=== PATIENT | male | born 1955 | race Caucasian/White ===

== ENCOUNTER 2016-09-01 06:11 | Day surgery (SDC) | payer OTHER ==
[2016-08-31 14:04] VITALS: BMI 24.0
[2016-09-01 07:04] LABS: URINE APPEARANCE CLEAR; URINE BILIRUBIN NEGATIVE (NEGATIVE); URINE BLOOD NEGATIVE (NEGATIVE); URINE COLOR LTYELLOW; URINE GLUCOSE (UA) NEGATIVE (NEGATIVE); URINE KETONE NEGATIVE (NEGATIVE); URINE LEUK ESTERASE NEGATIVE (NEGATIVE); URINE NITRITE NEGATIVE (NEGATIVE); URINE PROTEIN NEGATIVE (NEGATIVE); URINE UROBILINOGEN NEGATIVE E.U./dl (0.2-1.0)
[2016-09-01 07:32] LABS: INR 0.96 (0.82-1.09); PROTHROMBIN TIME (PATIENT) 10.6 SEC (9.98-11.88)
[2016-09-01] MEDS ORDERED: BUPIVACAINE HCL/PF 0.5% (5MG/ML) 10 ML VIAL ONE (07:39)
[2016-09-01] MEDS ORDERED: LIDOCAINE HCL 1%, 10 MG/ML (20ML VIAL) ONE (07:39)
[2016-09-01] MEDS ORDERED: MIDAZOLAM HCL 2 MG/2 ML SINGLE DOSE VIAL ONE ×2 (07:42→08:29)
--- NOTE | 2016-09-01 08:21 | HP ---
Satellite [facility] - Chief Complaint History of Present Illness: left hand pain, contracture - Past Medical History Allergies/Adverse Reactions: Allergies Allergy/AdvReac Type Severity Reaction Status Date / Time No Known Drug Allergies Allergy Verified 08/31/16 14:04 - Current Medications Current Medications: Home Medications Medication Instructions Recorded Atorvastatin Ca [Lipitor] 10 mg PO HS 08/31/16 Hydrocodone/Acetaminophen 1 each PO Q6H #40 tablet MDD 4 09/01/16 [Hydrocodon-Acetaminoph 7.5-325] Satellite Physical Exam - Physical Examination Vital Signs: Vital Signs Period Temp Pulse Resp BP Sys/Collier Pulse Ox Last 24 Hr 98.5 F-98.5 F 65-65 20-20 143-143/82-82 98 General Appearance: Well Nourished, Well Developed, Alert & Oriented x3 ENT: Clear Lung: Normal air movement Heart: Regular rate & rhythm Extremities: Other (leftr hand- + contracture, + cord, nvi) Neurological: Intact, Alert, Oriented Satellite Impression/Plan - Impression/Plan Impression: left dupuytrens contracture Operative Procedure: left dupuytrens excision Date to be Performed: 09/01/16
[2016-09-01] MEDS ORDERED: ceFAZolin SODIUM 1 GM VIAL IVPB ONE (08:28)
[2016-09-01] MEDS ORDERED: KETOROLAC TROMETHAMINE 30 MG/1 ML VIAL ONE (08:28)
[2016-09-01] MEDS ORDERED: LIDOCAINE HCL/PF 2% SDV 5ML VIAL ONE (08:28)
[2016-09-01] MEDS ORDERED: PROPOFOL 20 ML ONE ×4 (08:29→08:49)
[2016-09-01] MEDS ORDERED: PROMETHAZINE HCL 25 MG/1 ML VIAL IVPUSH PRN (09:43)
[2016-09-01] MEDS ORDERED: oxyCODONE HCL 5 MG TABLET PO PRN (09:43)
[2016-09-01] MEDS ORDERED: ONDANSETRON 4 MG/2 ML VIAL IVPUSH PRN (09:43)
--- NOTE | 2016-09-01 09:44 | OP ---
Operative Note - Note: Operative Date: 09/01/16 Pre-Operative Diagnosis: left hand Dupuytren's Operation: left hand Dupuytren's excision Post-Operative Diagnosis: Same as Pre-op Surgeon: Lencho Bender Anesthesiologist/BUSINESS ASST: Asim Ervin Anesthesia: General, Local Specimens Removed: Dupuytren's tissue Estimated Blood Loss (mls): 0 Blood Volume Replaced (mls): 0 Fluid Volume Replaced (mls): 500 Operative Report Dictated: Yes
[2016-09-01 11:31] VITALS: BP 140/87; PULSE 68; TEMP 98.5
--- NOTE | 2016-09-01 18:37 | OP ---
DATE OF OPERATION: 09/01/2016 PREOPERATIVE DIAGNOSIS: Left Dupuytren contraction. POSTOPERATIVE DIAGNOSIS: Left Dupuytren contraction. PROCEDURE: Left Dupuytren excision, left hand. SURGEON: Devendra Sanders M.D. PROGRAM SUPPORT ASSISTANT: Lencho Bender M.D. ANESTHESIOLOGIST: Asim Ervin M.D. ANESTHESIA: LMA anesthesia, local injection of 12 mL 0.5% Marcaine, 1% lidocaine mix. DRAINS: None. COMPLICATIONS: None. SPECIMEN: Dupuytren excision left hand. BLOOD LOSS: None. BLOOD GIVEN: None. FLUID REPLACEMENT: 700 mL Plasmalyte. 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 After understanding the potential risks, complications, alternatives, benefits to surgery versus nonsurgical treatment, the patient elected to pursue this procedure. He understands there may be temporary or permanent paresthesias, neurovascular compromise, recurrence of the Dupuytren tissue, skin breakdown, need for additional surgery, infection. He will have a scar, and he may develop an additional functional deformity. DESCRIPTION OF PROCEDURE: Patient brought to operating room, peripheral IV placed, IV sedation given, 1 g of IV Ancef was given, LMA anesthesia was induced. The left upper extremity was prepped and draped in usual sterile fashion, elevated, exsanguinated with Esmarch bandage, and tourniquet inflated to 250 mmHg. A zigzag incision was marked out over the palm at the base of the ring finger. It was not extended into the finger at all. 12 mL of 0.5% Marcaine with lidocaine mix was injected in the surgical incision. Number 15 scalpel blade was utilized to cut down through the skin. Subcutaneous hemostasis achieved with a bipolar cautery. Careful dissection was done with scissors and with a fresh number 15 scalpel blade. 2-0 silk retaining sutures were placed and . Careful dissection was done, taking great care to preserve all neurovascular structures. Patient had a lot of Dupuytren tissue. It was quite infiltrated, going around neurovascular structures, even completely around the flexor tendons and adherence to the undersurface of the skin. Once this was done, I was able to excise the Dupuytren tissue, passed off the field as specimen. The area was copiously irrigated and washed out. I was not able to see or feel any other abnormal Dupuytren tissue. Again, the area was copiously irrigated and washed out and closure begun. Closure was done with the 4-0 undyed Vicryl in the deep dermal layer. Final skin reapproximation was done with single interrupted horizontal mattress 3-0 nylon sutures. The area was then washed and dried and covered with Xeroform gauze, 4x4 gauze, and Webril. Of note, I was able to get the full extension without any problems of all 5 fingers of his left hand for flexion as well and overall looked quite good. This was wrapped with Coban. The tourniquet was taken down after total tourniquet time of about 40 minutes. There were no complications. During the case, the patient tolerated the procedure quite well and was brought to the ambulatory recovery room in stable condition. Glenn DEL [id number]
--- NOTE | 2016-09-02 13:42 | PATH ---
Surgical Pathology Report Patient Name: IDALIA GOMEZ [facility]. Rec. #: [id number] /Age/Gender: 1955 (Age: 60) / M Account: [id number] Location: [facility] SURGICAL Taken: 09/01/2016 Received: 09/01/2016 Reported: 09/02/2016 Physicians: Devendra Sanders M.D. Specimen(s) Received DUPUYTREN'S TISSUE LEFT HAND Clinical History Left hand Dupuytren's Final Diagnosis SOFT TISSUE, LEFT HAND, DUPUYTREN'S RELEASE: CONSISTENT WITH FIBROMATOSIS. Electronically Signed Dhaval Yang M.D. Gross Description Received in formalin labeled "Dupuytren's tissue left hand" is a 2.5 x 2.0 x 0.4 cm aggregate of ya-yellow, irregular portions of soft tissue. The specimen is submitted in toto in one cassette. /09/01/201609/01/2016
== END 2016-09-01 11:30 | disposition home or self-care (01) ==
LOC: JASU-SURG 06:11
PROVIDERS: ATTEND Orthopaedic Surgery
PROC: 0JNK0ZZ Release Left Hand Subcutaneous Tissue and Fascia, Open Approach (ICD-10-PCS; principal; 2016-09-01 08:00)
DX: M72.0 Palmar fascial fibromatosis [Dupuytren] (principal)
CPT/HCPCS: 36415; 81003; 85610; 88304-TC; 94760